=== PATIENT | male | born 1970 | race Caucasian/White ===

== ENCOUNTER 2022-04-08 08:24 | Day surgery (SDC) | payer BC, SELFPAY ==
[2022-04-08] VITALS (7 sets, daily range): BP systolic 98–112; BP diastolic 73–87; PULSE 49–71; RESP 16; TEMP 36.2–36.8; O2SAT 97–98; BMI 26.6
--- NOTE | 2022-04-08 09:22 | H&P.OPEN ---
HPI - General HPI Narrative KATI ACOSTA, is a 51 M who presents for screening colonoscopy. He has never had a colonoscopy in the past. He does report family history of colon cancer in his mother. He denies abdominal pain or blood in the stool. [facility] Medical History Non-smoker Wears glasses Home Medications NK 02/18/22 [History Last Taken Unknown] Allergy/AdvReac Type Severity Reaction Status Date / Time No Known Allergies Allergy Verified 04/08/22 08:55 Family History Father COVID Mother Breast cancer Arthritis Colon cancer Grandmother Cancer Hypertension Diabetes Grandfather Cancer Arthritis Surgical History History of hernia repair History of hydrocelectomy Hx of tonsillectomy Social History household members: spouse and children number of children: 8 current occupational status: employed current occupation: [employer] Smoking Status: Never smoker substance use type: does not use well-balanced diet: daily or most days seatbelt use: always Past Medical/Surgical History Planned Operation Planned Operative Procedure/s: COLONOSCOPY Previous Hospitalizations/Surgeries HX Hospitalizations: No Any Problems With Anesthesia: No You/Your Family Experience Fever (Hyperthermia) With Anes: No Cholinesterase deficiency: No Cardiovascular Hx Hypertension: No Respiratory Hx Sleep Apnea: No Hx Respiratory Tract Infection/Cold (presently): No Do You Snore Loudly (louder than talking or can be heard): No Do You Often Feel Tired/ Fatigued/ Sleepy Dring Daytime?: No Has Anyone Observed You Stop Breathing During Sleep?: No Result (for STOP score): Negative Smoking Status: Never smoker Neurological Does patient have nerve stimulator: No Miscellaneous Recent Exposure to Contagious Disease: No Allergies No Known Allergies Allergy (Verified 04/08/22 08:55) Discharge Is Pt Admitted From a Fpc, or a Retirement: No After D/C, Where Do you Plan to Go: Return Home Vital Signs Vital Signs Vital Signs: 04/08/22 08:56 04/08/22 08:56 Temperature 98.2 F Temperature Source Temporal Pulse Rate 71 Respiratory Rate 16 Respiratory Pattern Normal Blood Pressure 112/87 H Blood Pressure Mean 95 Blood Pressure Source Monitor Blood Pressure Position Semi-Fowlers Blood Pressure Location Right Arm Pulse Ox 97 Oxygen Delivery Method Room Air Weight Weight: 180 lb 12.465 oz Body Mass Index (BMI) 26.6 Physical Exam Const alert and oriented x3 Resp normal respiratory effort and normal air movement Cardio regular rate and regular rhythm GI soft to palpation, non-tender and non-distended Assessment & Plan Assessment/Plan (1) Encounter for screening for malignant neoplasm of colon: PLAN: I explained endoscopy in detail to the patient. I explained the risks including but not limited to stroke or heart attack with anesthesia, perforation of the GI tract, bleeding, infection. I explained that any of these could necessitate further emergency surgery. The patient understands and all questions were answered sufficiently. The patient wishes to proceed with procedure. Korey Solorio MD Pager: [facility] [address] [place] [address], [address] [place] [address] Office: Surgery Risks - Colonoscopy Risks Include but are not Limited To: Risks include but are not limited to: Bleeding, perforation requiring further surgery, inability to complete colonoscopy requiring barium enema.
--- NOTE | 2022-04-08 09:30 | COLBX_PTH ---
PATIENT: KATI ACOSTA LOC: EN U#:[id number] AGE/SX: 51/M ROOM: RE04/08/[address]: Dr. Korey Solorio MD : 1970 BED: DIS: 04/08/2022 SPEC #: [id number] RECD: 04/08/22 14:47 STATUS: DIONICIO PULIDOJuan #: [id number] KARLA: 04/08/22 09:[address]: Korey Solorio DEPT: SURGICAL PATHOLOGY RECD BY: Tamiko Engel ENTERED: 04/09/22 07:39 SP TYPE: COLON BX OTHR DR: Dr. Ronaldo Bhandari MD Tissues: A - Rectum, NOS B - Rectum, NOS Procedures: Surgery Specimen Level IV HEADER OPERATION: Colonoscopy ? open access (MAC) PRE-OP DIAGNOSIS: Screening TISSUE SUBMITTED: A ? Proximal rectal polyp, B ? Distal rectal polyp MICROSCOPIC DIAGNOSIS A. Proximal rectal polyp, biopsy: Fragments of tubular adenoma. B. Distal rectal polyp, biopsy: Hyperplastic polyp. AM:sarah 04/10/2022 MICROSCOPIC DESCRIPTION Slides are reviewed. GROSS DESCRIPTION A - Received in fixative is one container labeled with the patient's name and designated proximal left rectal polyp. The specimen consists of multiple irregular fragments of light chavarria soft tissue that in aggregate measure 1.5 x 1.3 x 0.5 cm. The largest fragment is bisected and submitted along with the smaller fragments in one cassette. B - Received in fixative is one container labeled with the patient's name and designated distal rectal polyp. The specimen consists of one irregular fragment of light chavarria soft tissue that measures 0.5 x 0.5 x 0.1 cm. The specimen is totally submitted in one cassette. / AM:sarah 04/09/2022 TC:5 [facility]: [id number] x2
--- NOTE | 2022-04-08 09:43 | OP.COLON_ITS ---
Patient Name: Juan Pablo Daugherty Procedure Date: 04/08/2022 9:23 AM Date of : 1970 Age: 51 Procedure: Colonoscopy Indications: Colon cancer screening in patient at increased risk: Colorectal cancer in mother Providers: Korey Solorio MD Medicines: Monitored Anesthesia Care Patient Profile: This is a 51 year old male. Refer to note in patient chart for documentation of history and physical. Last Colonoscopy: none. The patient's first colonoscopy is today. Complications: No immediate complications. Procedure: Pre-Anesthesia Assessment: - Prior to the procedure, a History and Physical was performed, and patient medications and allergies were reviewed. The patient's tolerance of previous anesthesia was also reviewed. The risks and benefits of the procedure and the sedation options and risks were discussed with the patient. All questions were answered, and informed consent was obtained. Prior Anticoagulants: The patient has taken no previous anticoagulant or antiplatelet agents. After reviewing the risks and benefits, the patient was deemed in satisfactory condition to undergo the procedure. After I obtained informed consent, the scope was passed under direct vision. Throughout the procedure, the patient's blood pressure, pulse, and oxygen saturations were monitored continuously. The colonoscope was introduced through the anus and advanced to the cecum, identified by appendiceal orifice and ileocecal valve. The colonoscopy was performed without difficulty. The patient tolerated the procedure well. The quality of the bowel preparation was good. Scope In: 9:27:05 AM Scope Withdrawal Time 0 hours 7 minutes 41 seconds Scope Out: 9:37:56 AM Total Procedure Duration Time 0 hours 10 minutes 51 seconds Findings: Two pedunculated polyps were found in the rectum. These polyps were removed with a hot snare. Resection and retrieval were complete. The exam was otherwise without abnormality on direct and retroflexion views. Impression: - Two polyps in the rectum, removed with a hot snare. Resected and retrieved. - The examination was otherwise normal on direct and retroflexion views. Recommendation: - Discharge patient to home. - Resume previous diet. - Continue present medications. - Await pathology results. - Repeat colonoscopy in 5 years for surveillance. Procedure Code(s): --- Professional --- 65800, Colonoscopy, flexible; with removal of tumor(s), polyp(s), or other lesion(s) by snare technique Diagnosis Code(s): --- Professional --- Z80.0, Family history of malignant neoplasm of digestive organs K62.1, Rectal polyp CPT copyright 2017 [employer]. All rights reserved. The codes documented in this report are preliminary and upon boxing trainer review may be revised to meet current compliance requirements. Korey Solorio MD 04/08/2022 9:42:54 AM This report has been signed electronically. Number of Addenda: 0 Note Initiated On: 04/08/2022 9:23 AM
--- NOTE | 2022-04-08 09:44 | OP.CCLET_ITS ---
04/08/2022 Erasto Bhandari [address] [place] [address] Re : Colonoscopy procedure for Juan Pablo Daugherty Dear Dr. Bhandari This procedure was performed on Friday, April 08, 2022. My impressions and recommendations are as follows: Impressions : - Two polyps in the rectum, removed with a hot snare. Resected and retrieved. - The examination was otherwise normal on direct and retroflexion views. Recommendations : - Discharge patient to home. - Resume previous diet. - Continue present medications. - Await pathology results. - Repeat colonoscopy in 5 years for surveillance. My findings are described in the full procedure note, which is enclosed. If I can be of further assistance, please feel free to contact me at Doctor phone number(s): , Work: . Sincerely, Korey Solorio MD 04/08/2022 9:42:54 AM This report has been signed electronically.
== END 2022-04-08 10:17 | disposition home or self-care (01) ==
LOC: EN 08:26 → AC 08:28
PROVIDERS: PCP Family Medicine; Referring Provider Family Medicine; Visit Provider Surgery
PROC: 0DJD8ZZ Inspection of Lower Intestinal Tract, Via Natural or Artificial Opening Endoscopic (ICD-10-PCS; CPT 45378; principal; 2022-04-08 09:25)
DX: Z12.11 Encounter for screening for malignant neoplasm of colon (principal); D12.8 Benign neoplasm of rectum; Z80.0 Family history of malignant neoplasm of digestive organs; K62.1 Rectal polyp
CPT/HCPCS: 45385; 88305; J7120; J2405